=== PATIENT | female | born 1950 | race Caucasian/White ===

== ENCOUNTER → 2022-01-23 | Day surgery (SDC) | payer MEDICARE, OTHER ==
[~2022-01-23] VITALS: Ht 149.8 cm; Wt 90.7 kg
[~2022-01-23] MED LIST: BENZTROPINE MESY2 MG PO; DULCOLAX STOOL100 M1 PO; FUROSEMIDE20 M1 PO; LORAZEPAM0.5 MG PO; OMEPRAZOLE40 MG PO; PANTOPRAZOLE SO40 MG PO; PRISTIQ100 MG PO; PRISTIQ50 MG PO; RISPERDAL2 M1 PO; RISPERIDONE2 M2 PO
[2022-01-23 11:51] VITALS: BP 102/47
[2022-01-23 12:26] VITALS: BP 117/56
[2022-01-23 12:40] VITALS: BP 109/70
[2022-01-23 12:49] VITALS: BP 130/73
[2022-01-23 14:31] VITALS: BP 117/56
== END | disposition home or self-care (01) ==
LOC: SDC 01-18 11:45
PROVIDERS: ATTEND Ophthalmology
DX: H25.811 Combined forms of age-related cataract, right eye (principal); F41.9 Anxiety disorder, unspecified; F32.9 Major depressive disorder, single episode, unspecified; K21.9 Gastro-esophageal reflux disease without esophagitis; Z90.710 Acquired absence of both cervix and uterus; Z96.653 Presence of artificial knee joint, bilateral; Z79.899 Other long term (current) drug therapy; Z90.49 Acquired absence of other specified parts of digestive tract

== ENCOUNTER → 2022-02-13 | Day surgery (SDC) | payer MEDICARE, OTHER ==
[~2022-02-13] VITALS: Ht 149.8 cm; Wt 90.7 kg
[2022-02-13 10:14] VITALS: BP 127/53
[2022-02-13 11:15] VITALS: BP 119/57
[2022-02-13 11:30] VITALS: BP 122/50
[2022-02-13 11:45] VITALS: BP 126/55
[2022-02-13 14:31] VITALS: BP 122/55
== END | disposition home or self-care (01) ==
LOC: SDC 02-08 11:45
PROVIDERS: ATTEND Ophthalmology
DX: H25.812 Combined forms of age-related cataract, left eye (principal); K21.9 Gastro-esophageal reflux disease without esophagitis; F41.9 Anxiety disorder, unspecified; F32.9 Major depressive disorder, single episode, unspecified; Z88.0 Allergy status to penicillin; Z88.1 Allergy status to other antibiotic agents; Z91.013 Allergy to seafood; Z90.710 Acquired absence of both cervix and uterus; Z98.890 Other specified postprocedural states; Z79.899 Other long term (current) drug therapy